=== PATIENT | male | born 1945 | race Caucasian/White ===

== ENCOUNTER 2019-03-05 14:51 | Emergency (ER) | payer OTHER ==
[~2019-03-05] VITALS: Ht 185.4 cm; Wt 89.4 kg
[2019-03-05 15:19] LABS: BASOPHILS ABSOLUTE AUTO 0.03 K/mm3 (0.00-0.23); BASOPHILS PERCENT AUTO 0 % (0-2); EOSINOPHILS ABSOLUTE AUTO 0.01 K/mm3 (0.00-0.68); EOSINOPHILS PERCENT AUTO 0 % (0-6); Hematocrit 45.2 % (37.0-53.0); Hemoglobin 14.4 g/dL (13.5-17.5); IMMATURE GRAN ABSOLUTE AUTO 0.06 K/mm3 (0.00-0.10); IMMATURE GRAN PERCENT AUTO 1 % (0-1); LYMPHOCYTES ABSOLUTE AUTO 1.29 K/mm3 (0.84-5.20); LYMPHOCYTES PERCENT AUTO 14 % (21-46); MONOCYTES ABSOLUTE AUTO 1.03 K/mm3 (0.16-1.47); MONOCYTES PERCENT AUTO 11 % (4-13); Mean Corpuscular HGB 28.2 pg (26.0-34.0); Mean Corpuscular HGB Conc 31.9 g/dL (31.5-36.5); Mean Corpuscular Volume 89 fL (80-100); Mean Platelet Volume 9.6 fL (9.1-12.4); NEUTROPHILS ABSOLUTE AUTO 7.17 K/mm3 (1.96-9.15); NEUTROPHILS PERCENT AUTO 75 % (41-73); Platelet Count 190 K/mm3 (150-400); RDW Coefficient Variation 13.7 % (11.7-14.2); RDW Standard Deviation 44.8 fL (35.1-46.3); White Blood Cell Count 9.59 K/mm3 (4.00-11.30)
[2019-03-05 15:39] LABS: Alanine Aminotransfer (ALT/SGP 19 U/L (12-78); Albumin, Blood 3.5 g/dL (3.4-5.0); Albumin/Globulin Ratio 0.9 (0.8-1.8); Alk Phos 72 U/L (50-136); Anion Gap 5 mmol/L (6-16); Aspartate Aminotrans (AST/SGOT 21 U/L (12-37); Bilirubin, Total 1.2 mg/dL (0.1-1.0); Blood Urea Nitrogen 10 mg/dL (8-24); Bun/Creatinine Ratio 10.8 (12.0-20.0); CO2, Blood 30 mmol/L (21-32); Calcium, Blood 8.9 mg/dL (8.5-10.1); Chloride, Blood 104 mmol/L (98-108); Creatinine, Blood 0.93 mg/dL (0.60-1.20); Globulin, Blood 3.8 g/dL (2.2-4.0); Glomerular Filtration Rate >60 (60-); Glucose, Blood 95 mg/dL (70-99); Sodium, Blood 139 mmol/L (136-145); Total Protein, Blood 7.3 g/dL (6.4-8.2)
[2019-03-05] MEDS ORDERED: AZIT250 PO (16:13)
[2019-03-05] MEDS ORDERED: Prednisone20 MG PO (16:13)
== END 2019-03-05 16:22 | disposition home or self-care (01) ==
LOC: ER 14:51
PROVIDERS: Emergency Medicine
DX: J44.1 Chronic obstructive pulmonary disease with (acute) exacerbation (principal); I10 Essential (primary) hypertension; Z87.891 Personal history of nicotine dependence
CPT/HCPCS: 71045; 80053; 85025; 93005; 93010; 94640; 96374; 99284-25; J2930

== ENCOUNTER 2020-09-17 17:42 | Observation (INO) | payer OTHER ==
[~2020-09-17] VITALS: Ht 188 cm; Wt 86.1 kg
[~2020-09-17 17:42] MED LIST: AZIT250 PO; Prednisone20 MG PO
[2020-09-17 18:45] LABS: BASOPHILS ABSOLUTE AUTO 0.05 K/mm3 (0.00-0.23); BASOPHILS PERCENT AUTO 0 % (0-2); EOSINOPHILS ABSOLUTE AUTO 0.01 K/mm3 (0.00-0.68); EOSINOPHILS PERCENT AUTO 0 % (0-6); Hematocrit 47.5 % (37.0-53.0); Hemoglobin 15.5 g/dL (13.5-17.5); IMMATURE GRAN ABSOLUTE AUTO 0.06 K/mm3 (0.00-0.10); IMMATURE GRAN PERCENT AUTO 1 % (0-1); LYMPHOCYTES ABSOLUTE AUTO 0.71 K/mm3 (0.84-5.20); LYMPHOCYTES PERCENT AUTO 6 % (21-46); MONOCYTES PERCENT AUTO 6 % (4-13); Mean Corpuscular HGB 28.9 pg (26.0-34.0); Mean Corpuscular HGB Conc 32.6 g/dL (31.5-36.5); Mean Corpuscular Volume 89 fL (80-100); Mean Platelet Volume 10.3 fL (9.1-12.4); NEUTROPHILS ABSOLUTE AUTO 9.81 K/mm3 (1.96-9.15); NEUTROPHILS PERCENT AUTO 87 % (41-73); Platelet Count 230 K/mm3 (150-400); RDW Coefficient Variation 13.6 % (11.7-14.2); Red Blood Cell Count 5.37 M/mm3 (4.30-5.90); White Blood Cell Count 11.34 K/mm3 (4.00-11.30)
[2020-09-17 19:15] LABS: Alanine Aminotransfer (ALT/SGP 25 U/L (12-78); Albumin, Blood 4.1 g/dL (3.4-5.0); Alk Phos 81 U/L (50-136); Anion Gap 4 mmol/L (6-16); Aspartate Aminotrans (AST/SGOT 23 U/L (12-37); Bilirubin, Total 0.7 mg/dL (0.1-1.0); Blood Urea Nitrogen 16 mg/dL (8-24); Bun/Creatinine Ratio 16.8 (12.0-20.0); CO2, Blood 30 mmol/L (21-32); Calcium, Blood 9.6 mg/dL (8.5-10.1); Chloride, Blood 105 mmol/L (98-108); Creatinine, Blood 0.95 mg/dL (0.60-1.20); Globulin, Blood 4.3 g/dL (2.2-4.0); Glomerular Filtration Rate >60 (60-); Glucose, Blood 106 mg/dL (70-99); Potassium, Blood 4.1 mmol/L (3.5-5.5); Sodium, Blood 139 mmol/L (136-145); Total Protein, Blood 8.4 g/dL (6.4-8.2); Troponin I 0.073 ng/mL (0.000-0.040)
[2020-09-17 19:30] LABS: International Normalized Ratio 0.95; Prothrombin Time Results 10.3 Sec (9.7-11.5)
[2020-09-17 20:57] LABS: Ethanol (Alcohol), Blood, Med <3 mg/dL; Magnesium, Blood 2.2 mg/dL (1.6-2.4)
[2020-09-17] MEDS ORDERED: ALBU90OI INH (22:17)
[2020-09-17] MEDS ORDERED: TAMS.4ER PO (22:18)
[2020-09-17] MEDS ORDERED: SYMBICORT 160-4.6 GM INH (22:18)
[2020-09-17] MEDS ORDERED: TIOT18 INH (22:18)
[2020-09-18 02:58] LABS: CHOL/HDL RATIO 2.9; Cholesterol 146 mg/dL (50-200); HDL Cholesterol 50 mg/dL (>39); LDL/HDL RATIO 1.4; Low Density Lipoprotein Chol 68 mg/dL (0-110); Triglycerides 142 mg/dL (30-160); Very Low Density Lipoprot Chol 28 mg/dL (6-32)
--- NOTE | 2020-09-18 07:15 | NUR ---
SHIFT SUMMARY PT WAS A NEW ADMIT DURING THE NIGHT, ARRIVING AT 2224. HE WAS ADMITTED FOR POSSIBLE TIA. PT IS A&0 X 4, SBA C FWW TO THE BATHROOM. NO NEURO DEFICITS NOTED ON ADMISSION. PT DID HAVE EPISODE OF SOB WITH EXERTION, BUT DENIED ANY CP OR NAUSEA. PT'S HOME INHALERS ORDERED. NO ACUTE CHANGES IN PT CONDITION NOTED SINCE ADMISSION. REPORT GIVEN TO ONCOMING RN.
[2020-09-18] MEDS ORDERED: ASPI81CH PO (12:01)
--- NOTE | 2020-09-18 13:29 | NUR ---
PT HAD VENOUS DOPPLAR AND ECHOCARDIOGRAM PERFORMED AT THE BEDSIDE; DISCHARGE ORDERS PLACED; PT RECEIVED DISCHARGE TEACHING AT 1230; ATE 75% OF LUNCH AT 1240; VOIDED 100ML URINE AT 1249, AND HAD TELEMETRY DISCONTINUED AT 1253; PT TRANSPORTED OFF UNIT AT 1310 VIA WHEELCHAIR ACCOMPANIED BY RN WITH NO MONITORING, OXYGEN, OR INFUSION THERAPIES; ALL PERSONAL EFFECTS ACCOUNTED FOR VERBALLY BY PT; PT TRANSFERRED TO SUPERVISION OF HIS DAUGHTER IN LAW AND VIA PRIVATE VEHICLE; PT DENIES ADDITIONAL CONCERNS AT THIS TIME
== END 2020-09-18 13:14 | disposition home or self-care (01) ==
LOC: ER 17:42 → MEDS 17:43
PROVIDERS: Emergency Medicine; Physician Assistant; ADMIT Internal Medicine
DX: G45.9 Transient cerebral ischemic attack, unspecified (principal); R79.89 Other specified abnormal findings of blood chemistry; J44.9 Chronic obstructive pulmonary disease, unspecified; I10 Essential (primary) hypertension; R13.10 Dysphagia, unspecified; R53.1 Weakness; F17.210 Nicotine dependence, cigarettes, uncomplicated
CPT/HCPCS: 36415; 70450; 71045; 80053; 80061; 83735; 83880; 84484; 85025; 85610; 93005; 93010; 93306; 93880; 94640; 94664; 94760; 96372; 99285-25; A9270; G0378; G0480; J1650

== ENCOUNTER 2021-03-19 06:32 | Day surgery (SDC) | payer OTHER ==
[~2021-03-19] VITALS: Ht 188 cm; Wt 92.0 kg
[~2021-03-19 06:32] MED LIST changes: +ALBU90OI INH; +AMLO5 PO; +ASPI81CH PO; +ATOR40TA PO; +HYDCHL12.5 PO; +METO25 PO; +STIOLTO RESPIMAT4 G1 IH; +SYMBICORT 160-4.6 GM INH; +TAMS.4ER PO; +TIOT18 INH
--- NOTE | 2021-03-19 09:00 | NUR ---
DR. HINDS HERE TO DISCUSS PROCEDURE WITH PT AND .
--- NOTE | 2021-03-19 09:50 | NUR ---
2 CC AIR REMOVED FROM TR BAND. NO BLEEDING AT SITE.
--- NOTE | 2021-03-19 10:00 | NUR ---
REMAINDER OF AIR REMOVED FROM TR BAND. NO BLEEDING AT SITE. DISCHARGE INSTRUCTIONS GIVEN WITH WRITTEN AND VERBAL UNDERSTANDING.
--- NOTE | 2021-03-19 10:15 | NUR ---
REMAINDER OF AIR REMOVED FROM TR BAND. NO BLEEDING AT SITE.
--- NOTE | 2021-03-19 10:45 | NUR ---
DRESSING FOR DISCHARGE. IV REMOVED INTACT. 2X2, COBAN AND MANUAL PRESSURE HELD. TR BAND REMOVED. NO BLEEDING AT SITE. CLOTH DOTH, IMMOBILZER AND SLING APPLIED.
--- NOTE | 2021-03-19 11:00 | NUR ---
DISCHARGED HOME VIA WHEELCHAIR. FAMILY DRIVING.
== END 2021-03-19 11:37 | disposition home or self-care (01) ==
LOC: MHTC 06:32
DX: I25.118 Atherosclerotic heart disease of native coronary artery with other forms of angina pectoris (principal); I11.0 Hypertensive heart disease with heart failure; I50.9 Heart failure, unspecified; J44.9 Chronic obstructive pulmonary disease, unspecified; E78.5 Hyperlipidemia, unspecified; N40.1 Benign prostatic hyperplasia with lower urinary tract symptoms; F17.210 Nicotine dependence, cigarettes, uncomplicated; Z86.73 Personal history of transient ischemic attack (TIA), and cerebral infarction without residual deficits; Z79.82 Long term (current) use of aspirin; Z88.8 Allergy status to other drugs, medicaments and biological substances
CPT/HCPCS: 93005; 93010; 93454; 99152; C1769; C1887; C1894; J1644; J2250; J3010; J7030; J7050; Q9967

== ENCOUNTER 2024-11-24 07:44 | Emergency (ER) | payer OTHER ==
[~2024-11-24] VITALS: Ht 175.3 cm; Wt 77.1 kg
[2024-11-24] MEDS ORDERED: NS 1,000 ML IV SCH (08:05)
[2024-11-24 08:12] LABS: BASOPHILS ABSOLUTE AUTO 0.03 K/mm3 (0.00-0.23); BASOPHILS PERCENT AUTO 0 % (0-2); EOSINOPHILS ABSOLUTE AUTO 0.02 K/mm3 (0.00-0.68); EOSINOPHILS PERCENT AUTO 0 % (0-6); Hematocrit 41.0 % (37.0-53.0); Hemoglobin 13.2 g/dL (13.5-17.5); IMMATURE GRAN ABSOLUTE AUTO 0.03 K/mm3 (0.00-0.10); IMMATURE GRAN PERCENT AUTO 0 % (0-1); LYMPHOCYTES ABSOLUTE AUTO 0.90 K/mm3 (0.84-5.20); LYMPHOCYTES PERCENT AUTO 11 % (21-46); MONOCYTES ABSOLUTE AUTO 0.38 K/mm3 (0.16-1.47); MONOCYTES PERCENT AUTO 5 % (4-13); Mean Corpuscular HGB Conc 32.2 g/dL (31.5-36.5); Mean Corpuscular Volume 89 fL (80-100); NEUTROPHILS ABSOLUTE AUTO 6.87 K/mm3 (1.96-9.15); NEUTROPHILS PERCENT AUTO 84 % (41-73); NRBC ABSOLUTE 0.00 K/mm3 (0.00-0.02); NRBC Auto 0.0 /100 WBC (0.0-0.2); Platelet Count 219 K/mm3 (150-400); RDW Coefficient Variation 15.4 % (11.7-14.2); RDW Standard Deviation 50.1 fL (35.1-46.3)
[2024-11-24 08:53] LABS: Alanine Aminotransfer (ALT/SGP 20.0 U/L (12-78); Albumin, Blood 3.6 g/dL (3.4-5.0); Albumin/Globulin Ratio 1.0 (0.8-1.8); Anion Gap 6.0 mmol/L (3-11); Aspartate Aminotrans (AST/SGOT 28.0 U/L (12-37); Bilirubin, Total 1.1 mg/dL (0.1-1.0); Blood Urea Nitrogen 15.0 mg/dL (8-24); CO2, Blood 29.0 mmol/L (21-32); Calcium, Blood 9.1 mg/dL (8.5-10.1); Chloride, Blood 107.0 mmol/L (98-108); Creatinine, Blood 0.93 mg/dL (0.60-1.20); Globulin, Blood 3.7 g/dL (2.2-4.0); Glucose, Blood 107.0 mg/dL (70-99); Potassium, Blood 4.2 mmol/L (3.5-5.5); Sodium, Blood 138.0 mmol/L (136-145); Total Protein, Blood 7.3 g/dL (6.4-8.2)
[2024-11-24 09:20] LABS: Source, Urine Clean Catch
[2024-11-24] MEDS ORDERED: Ketorolac Tromethamine 15mg Vial IV ONE (09:20)
[2024-11-24 09:34] LABS: Bilirubin, Urine Neg (Neg); Color, Urine Yellow (P-Yellow); Glucose Qualitative, Urine Neg (Neg); Ketones, Urine Neg (Neg); Leukocyte Esterase, Urine Neg (Neg); Protein, Urine Neg (Neg); Specific Gravity, Urine 1.010 (1.003-1.022); Urobilinogen, Urine NORM (Normal)
[2024-11-24 09:49] LABS: Red Blood Cells, Urine 25-50 /hpf (0-2); White Blood Cells, Urine 0-2 /hpf (0-5)
[2024-11-24] MEDS ORDERED: ONDA4ODT MM (10:15)
[2024-11-24] MEDS ORDERED: IBUP800 PO (10:15)
[2024-11-24] MEDS ORDERED: Flomax0.4 MG PO (10:15)
[2024-11-24] MEDS ORDERED: Percocet 5-3251 EACH PO (10:15)
[2024-11-24 10:55] VITALS: BP 141/89
== END 2024-11-24 11:18 | disposition home or self-care (01) ==
LOC: ER 07:44
PROVIDERS: Student in an Organized Health Care Education/Training Program
DX: N13.2 Hydronephrosis with renal and ureteral calculous obstruction (principal); J44.9 Chronic obstructive pulmonary disease, unspecified; F17.210 Nicotine dependence, cigarettes, uncomplicated; Z86.73 Personal history of transient ischemic attack (TIA), and cerebral infarction without residual deficits
CPT/HCPCS: 74177; 80053; 81001; 83690; 85025; 93005; 93010; 96374-59; 99285-25; J7030; Q9967